=== PATIENT | male | born 1960 | race Caucasian/White ===

== ENCOUNTER 2017-02-23 22:04 | Emergency (ER) | payer MEDICAID, OTHER ==
[~2017-02-23] VITALS: Ht 162.6 cm; Wt 73.0 kg
[~2017-02-23 22:04] MED LIST: METF500T4; QUIN5TAB PO
[2017-02-23 22:11] VITALS: BP 140/86
== END 2017-02-23 23:10 | disposition home or self-care (01) ==
LOC: ER 22:30
DX: I10 Essential (primary) hypertension (principal); F41.9 Anxiety disorder, unspecified
CPT/HCPCS: 99283